=== PATIENT | male | born 1990 | race African-American/Black ===

== ENCOUNTER 2022-11-25 09:41 | Emergency (ER) | payer MEDICAID ==
[~2022-11-25] VITALS: Ht 182.9 cm; Wt 110.0 kg
[2022-11-25 09:58] VITALS: BP 151/97
[2022-11-25 11:56] LABS: CHLORIDE 105 mEq/L (98-107)
[2022-11-25 11:57] LABS: BASOPHILS % 0.8 % (0.0-2.0); EOSINOPHILS % 0.4 % (0.0-5.0); HEMATOCRIT. 46.4 % (42.0-52.0); HEMOGLOBIN. 15.8 g/dL (14.0-18.0); LYMPHOCYTES % 26.4 % (20.0-50.0); MEAN CORPUSCULAR HEMOGLOBIN 27.5 pg (28.0-32.0); MEAN CORPUSCULAR VOLUME 80.7 fL (80.0-94.0); MEAN PLATELET VOLUME 8.3 fl (7.4-10.4); NEUTROPHILS % 64.4 % (40.0-76.0); PLATELET 222 x1000/uL (130-400); RED BLOOD CELL COUNT 5.75 mill/uL (4.7-6.1)
[2022-11-25] MEDS ORDERED: TOPUD PO (12:10)
== END 2022-11-25 16:32 | disposition home or self-care (01) ==
LOC: ER 09:41
DX: R07.89 Other chest pain (principal)
CPT/HCPCS: 36415; 71045; 80053; 83880; 84484; 85025; 99284